=== PATIENT | female | born 1975 | race Caucasian/White ===

== ENCOUNTER 2016-06-27 00:52 | Emergency (ER) | payer OTHER ==
[2016-06-27 01:00] VITALS: BP 134/84; PULSE 80; TEMP 97.2; BMI 45.4
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
[2016-06-27] MEDS ORDERED: IBUPROFEN 600 MG TABLET (FP) PO ONE (03:01)
[2016-06-27] MEDS: IBUPROFEN 600 MG TABLET (FP) PO ONE ×2 (03:04→03:11)
[2016-06-27] MEDS ORDERED: ACETAMINOPHEN 325 MG TABLET (FP) ONE (03:11)
== END 2016-06-27 03:36 | disposition home or self-care (01) ==
LOC: JER 00:52
DX: S13.4XXA Sprain of ligaments of cervical spine, initial encounter (principal); V53.5XXA Driver of pick-up truck or van injured in collision with car, pick-up truck or van in traffic accident, initial encounter; Y92.488 Other paved roadways as the place of occurrence of the external cause; Y93.89 Activity, other specified; Y99.8 Other external cause status
CPT/HCPCS: 70450-TC; 72125-TC; 99281-25